=== PATIENT | female | born 1965 | race Hispanic/Latino ===

== ENCOUNTER → 2017-11-22 | Outpatient (CLI) | payer BC ==
--- NOTE | 2017-11-22 13:33 | Diagnostic Imaging Report ---
EXAM: Thyroid Ultrasound INDICATION: History of thyroid cancer. COMPARISON: None TECHNIQUE: Transverse and sagittal images were obtained of the neck. FINDINGS: See impression. IMPRESSION: Status post thyroidectomy. No evidence of recurrent disease in thyroidectomy bed. Signed by: Dr. Al Chatterjee MD on 11/22/2017 1:29 PM
== END ==
LOC: US 11:48
PROVIDERS: ATTEND Internal Medicine
DX: C73 Malignant neoplasm of thyroid gland (principal)
CPT/HCPCS: 76536